=== PATIENT | female | born 1975 | race Caucasian/White ===

== ENCOUNTER 2018-12-26 14:15 | Inpatient (IN) | payer OTHER ==
--- NOTE | 2018-12-26 14:58 | EDPHY ---
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 today and notes progressive swelling and erythema to the area ever since. Limited range of motion. No fever no chills. The offending cat has up-to-date vaccinations including rabies. PCP: Worker's compensation REVIEW OF SYSTEMS: 10 systems reviewed and negative with the exception of the elements mentioned in the history of present illness PAST MEDICAL & SURGICAL HISTORY: No pertinent medical or surgical history SOCIAL HISTORY:Nonsmoker. 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 Appears to be in no acute distress. 2) HEAD: Normocephalic, atraumatic 3) HEENT: Pupils equal, round, reactive to light bilaterally. Sclera anicteric. 4) NECK: Full range of motion, no meningeal signs. 5) LUNGS: Clear auscultation bilaterally, no wheezes, no rhonchi, no retractions. 6) HEART: Regular rate and rhythm, no murmur, no heave, no gallop. 7) ABDOMEN: No guarding, no rebound, no focal tenderness, 8) MUSCULOSKELETAL: Left thumb: Puncture wound left thumb proximal phalanx with diffuse erythema, induration, tenderness to the left thumb with limited range of motion at the MCP and IP with lymphangitic streaking extending along her thenar eminence. 9) BACK: No CVA tenderness, no midline vertebral tenderness, no fluctuance, no step-off, no obvious trauma, no visual or palpable abnormality. 10) SKIN: No rash, no petechiae. 11) Psychiatric: Patient is oriented X 3, there is no agitation. DIFFERENTIAL DIAGNOSIS: In no particular order including but not limited to cat bite cellulitis, infectious tenosynovitis, osteomyelitis Smoking Status: Never smoked Constitutional: Initial Vital Signs Temperature (C) 37.2 C 12/26/18 14:17 Heart Rate 72 12/26/18 14:17 Respiratory Rate 16 12/26/18 14:17 Blood Pressure 139/87 H 12/26/18 14:17 O2 Sat (%) 99 12/26/18 14:17 O2 Delivery Mode Room Air Allergies/Adverse Reactions: No Known Allergies Allergy (Verified 12/28/15 12:30) Home Medications: Medication Instructions Recorded Effexor 12/03/15 Cefdinir [Omnicef (*)] 1 tab PO BID #20 cap 12/26/15 oxyCODONE/APAP 5/325 [Percocet 1 - 2 tab PO Q4 PRN #15 tab 12/26/15 5/325] Ciprofloxacin/Hydrocortisone 4 drops OT BID #1 vial 12/29/15 [Cipro Hc Otic Suspension] Sulfamethox/Tmp 800/160 mg 1 tab PO BID 7 Days tab 12/29/15 [Bactrim Ds] oxyCODONE/APAP 5/325 [Percocet 1 - 2 tab PO Q4 #12 tab 12/29/15 5/325 (*)] MDM/Departure - MDM ED Course/Re-evaluation: Patient has cellulitis to left thumb from a cat bite with progressive erythema limited range of motion. At this time I do not think outpatient management with oral antibiotics are appropriate and I have recommended hospital admission for IV antibiotics, hand surgery consultation. Discussed case with primary supervising physician Dr. Pyle in the ER. Discussed the case with hospitalist Dr Pavon at 3:20 p.m. who will admit patient. Consultation with Dr. Filippo Langley hand surgery 3:26 p.m. Who will come to the ER to evaluate patient. Last oral intake was 1:00 p.m. consisting of a burrito 3:[address] Langley has evaluated the patient the ER and is plannning on taking the patient to the OR later this afternoon/evening - Depart Disposition: [facility] Inpatient Acute Clinical Impression: left thumb cat bite cellulitis Condition: Fair
[2018-12-26] MEDS ORDERED: AMPICILLIN/SULBACTAM 3 GM in NS 100 ML IV ONE (15:17)
[2018-12-26] MEDS ORDERED: ONDANSETRON DISINTEGRATING 4 MG TAB PO PRN (15:44)
[2018-12-26] MEDS ORDERED: ONDANSETRON 4 MG/2 ML VIAL IVP PRN ×2 (15:44→20:38)
[2018-12-26] MEDS ORDERED: LORazepam 2 MG/ML INJ IVP PRN (15:44)
[2018-12-26] MEDS ORDERED: ACETAMINOPHEN 325 MG TAB PO PRN (15:44)
[2018-12-26] MEDS ORDERED: ALBUTEROL 3 ML DEYVIAL IH PRN ×2 (15:45→20:38)
--- NOTE | 2018-12-26 15:46 | PDGENHP ---
History and Physical - Chief Complaint cat bite - History of Present Illness 43yo F here after a cat bite. 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 The cat bit her left thumb (she is right hand dominant) around 10am this morning. 3 puncture sites. Has been getting progressively more red and swollen since then. Painful to move thumb. No fevers or chills. The cat she was working with is up to date on vaccinations including rabies. Blood cultures were drawn in the ED and IV unasyn was administered. Dr Filippo Langley of hand surgery was consulted and is planning on surgical wash out later this evening. Case discussed with ED provider Suzan Potter. History Information - Allergies/Home Medication List Allergies/Adverse Reactions: No Known Allergies Allergy (Verified 12/28/15 12:30) Home Medications: Venlafaxine Xr [Effexor Xr 75MG (*)] 150 mg PO HS 12/26/18 [Last Taken 12/25/18] I have personally reviewed and updated: family history, medical history, social history, surgical history - Past Medical History Additional medical history: depression, mild asthma, migraine headaches, neurogenic thoracic outlet syndrome on left - Surgical History Additional surgical history: 1st left rib resection for thoracic outlet (Dr Mensah), left ankle osteochondroma removal - Family History Positive for: non-pertinent - Social History Smoking Status: Never smoked Alcohol Use: Occasionally Drug Use: None Additional social history: Lives with beverley. 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 Review of Systems Review of Systems: ROS: 10pt was reviewed & negative except for what was stated in HPI & below Physical Exam Physical Exam: Temp Pulse Resp BP Pulse Ox 37.2 C 72 16 139/87 H 99 12/26/18 14:17 12/26/18 14:17 12/26/18 14:17 12/26/18 14:17 12/26/18 14:17 Constitutional: no apparent distress, appears nourished, not in pain Eyes: PERRL, anicteric sclera, EOMI Ears, Nose, Mouth, Throat: moist mucous membranes, hearing normal, ears appear normal, no oral mucosal ulcers Cardiovascular: regular rate and rhythym, no murmur, rub, or gallop, No edema Respiratory: no respiratory distress, no rales or rhonchi, clear to auscultation Gastrointestinal: normoactive bowel sounds, soft, non-tender abdomen, no palpable masses Genitourinary: no bladder fullness, no bladder tenderness Skin: erythema (blotchy erythematous macules on upper neck), other (3 puncture sites to left thumb which is swollen) Musculoskeletal: other (limited ROM in left thumb d/t swelling and pain) Neurologic: AAOx3 Psychiatric: interacting appropriately Lab Data & Imaging Review 12/26/18 15:35 12/26/18 15:35 Assessment & Plan Assessment: 43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 Plan: #Cat bite: Offending cat reportedly up to date on vaccinations including rabies. Important oral animal lizzy to consider include pasteurella, bartonella , capnocytophaga, anaerobes. - Hand x-ray and initial labs (CBC, BMP) pending - IV unasyn 3g q6h - Blood cultures drawn - Dr Filippo Langleys of hand surgery consulted, planning on wash out this evening - Pain control #Depression: Resume home effexor this evening. #Asthma: No acute exacerbation. Albuterol PRN. #H/o left sided neurogenic thoracic outlet syndrome s/p left 1st rib resection: Given that this did not affect vascular supply, it shouldn't compromise ability to heal. VTE ppx: SCDs Code: Full Diet: NPO until procedure, then regular Dispo: Admit under observation
[2018-12-26 15:56] LABS: PLATELET COUNT 154 10^3/uL (150-400)
[2018-12-26] MEDS ORDERED: LR 1,000 ML IV ONE (16:27)
[2018-12-26] MEDS ORDERED: AMPICILLIN/SULBACTAM 3 GM in NS 100 ML IV SCH (18:00)
--- NOTE | 2018-12-26 18:47 | PDANEPAE ---
ANE History of Present Illness cat bite here for I+D ANE Past Medical History - Cardiovascular History Hx Hypertension: No Hx Arrhythmias: No Hx Chest Pain: No Hx Coronary Artery / Peripheral Vascular Disease: No Hx CHF / Valvular Disease: No Hx Palpitations: No - Pulmonary History Hx Asthma/Reactive Airway Disease: Yes Hx Oxygen in Use at Home: No Hx Sleep Apnea: Yes Sleep Apnea Screening Result - Last Documented: Negative - Endocrine History Hx Diabetes: No ANE Review of Systems Review of Systems: - Exercise capacity Exercise capacity: >=4 METS ANE Patient History - Allergies Allergies/Adverse Reactions: No Known Allergies Allergy (Verified 12/28/15 12:30) - Home Medications Home Medications: Venlafaxine Xr [Effexor Xr 75MG (*)] 150 mg PO HS 12/26/18 [Last Taken 12/25/18] - NPO status NPO Status: no food or drink >8 hours NPO Since - Liquids (Date): 12/26/18 NPO Since - Liquids (Time): 14:00 NPO Since - Solids (Date): 12/26/18 NPO Since - Solids (Time): 12:00 - Anes Hx Anes Hx: no prior problems - Smoking Hx Smoking Status: Never smoked - Alcohol Use Alcohol Use: Occasionally - Family Anes Hx Family Anes Hx: none ANE Labs/Vital Signs - Labs Result Diagrams: 12/26/18 15:35 12/26/18 15:35 - Vital Signs Blood Pressure: 149/98 Heart Rate: 67 Respiratory Rate: 16 O2 Sat (%): 99 Height: 170.18 cm Weight: 68.039 kg ANE Physical Exam - Airway Neck exam: FROM Mallampati Score: Class 2 Mouth exam: normal dental/mouth exam - Pulmonary Pulmonary: no respiratory distress, clear to auscultation - Cardiovascular Cardiovascular: regular rate and rhythym, no murmur, rub, or gallop - ASA Status ASA Status: II, E ANE Anesthesia Plan Anesthesia Plan: general endotracheal anesthesia
[2018-12-26] MEDS ORDERED: MIDAZOLAM 2 MG/2 ML VIAL IVP ONE (18:48)
[2018-12-26] MEDS ORDERED: ALBUTEROL 3 ML DEYVIAL IH ONE (18:48)
[2018-12-26] MEDS ORDERED: BUPIVACAINE 0.5% 30 ML SDV ONE (18:52)
[2018-12-26] MEDS ORDERED: POLYMYXIN B SULFATE 500,000 UNIT/10 ML SYR IRR ONE (18:53)
[2018-12-26] MEDS ORDERED: BACITRACIN 50,000 UNITS/10 ML SYR IRR ONE (18:53)
[2018-12-26] MEDS ORDERED: fentaNYL 100 MCG/2 ML INJ ONE ×3 (18:54→20:37)
[2018-12-26] MEDS ORDERED: PROPOFOL 200 MG/20 ML VIAL ONE ×2 (18:54→20:30)
[2018-12-26] MEDS ORDERED: LIDOCAINE 2% 100 MG/5 ML SYR ONE (18:54)
[2018-12-26] MEDS ORDERED: ROCURONIUM 50 MG/5 ML VIAL ONE (18:55)
[2018-12-26] MEDS ORDERED: MIDAZOLAM 2 MG/2 ML VIAL ONE (19:04)
[2018-12-26] MEDS ORDERED: DEXAMETHASONE 4 MG/ML VIAL ONE (19:22)
[2018-12-26] MEDS ORDERED: ONDANSETRON 4 MG/2 ML VIAL ONE (19:22)
[2018-12-26] MEDS ORDERED: DIAZEPAM 10 MG/2 ML SYR IVP PRN (20:38)
[2018-12-26] MEDS ORDERED: HYDROCODONE/APAP 5/325 TAB PO PRN (20:38)
[2018-12-26] MEDS ORDERED: NALOXONE HCL 0.4 MG/ML INJ IVP PRN (20:38)
[2018-12-26] MEDS ORDERED: fentaNYL 100 MCG/2 ML INJ IVP PRN (20:38)
[2018-12-26] MEDS ORDERED: ACETAMINOPHEN 500 MG TAB PO PRN (20:38)
[2018-12-26] MEDS ORDERED: oxyCODONE IR 5 MG TAB PO PRN (20:38)
[2018-12-26] MEDS: HYDROmorphONE/DILAUDID 1 MG/ML INJ IVP PRN ×4 (20:40→21:31)
--- NOTE | 2018-12-26 20:40 | POSTANESTH ---
Post Anesthetic Evaluation Cardiovascular Status: Normal, Stable, Similar to Pre-Op Cond Respiratory Status: Normal, Stable, Similar to Pre-op Cond. Level of Consciousness/Mental Status: Can Participate in Eval, Alert and Oriented Pain Control: Adequate, Prn Tx Ordered Nausea/Vomiting Control: Adequate, Prn Tx Ordered Complications Possibly Related to Anesthesia: None Noted
[2018-12-26] MEDS ORDERED: HYDROmorphONE/DILAUDID 1 MG/ML INJ ONE ×2 (20:41→21:14)
[2018-12-26] MEDS ORDERED: oxyCODONE IR 5 MG TAB ONE (21:39)
--- NOTE | 2018-12-26 22:37 | SOAPPROG ---
SOAP Progress Note Assessment/Plan: Assessment: HPI: 43 year old female with multiple left thumb cat bites after injury at work earlier today (12/26/18). Currently with increasing left thumb erythema and pain. PE: LUE: 1mm puncture wound along the volar aspect of the left thumb proximal phalanx, 1mm puncture wound along the radial border of the left thumb IP joint, and 1mm puncture wound overlying the dorsal and ulnar IP joint +FDS, FDP, FPL, EPL, DI, PI +M/R/U SILT 2+ radial and ulnar pulses Assessment and Plan: 43 year old female with multiple left thumb cat bites after injury at work earlier today (12/26/18) -- currently with evidence of rapidly progressing cellulitis as well as flexor tenosynovitis and possible IP joint septic arthritis -I have discussed with the patient the risks, benefits, alternative and complications associated with both non-operative and operative (specifically, left thumb irrigation and debridement) forms of treatment and I am recommending emergent operative intervention -She fully understands the risks, benefits, alternative and complications associated with both forms of treatment and wishes to proceed with emergent operative intervention -She has signed the informed consent form for surgery and surgery will be performed as soon as the OR is available 12/26/18 16:30 Objective: Vital Signs Temp Pulse Resp BP Pulse Ox 36.8 C 89 16 167/109 H 92 12/26/18 22:22 12/26/18 22:22 12/26/18 22:22 12/26/18 22:22 12/26/18 22:22 Microbiology 12/26/18 19:30 Mycobacterial Smear (AKIL) - Final Finger - Eswab Mycobacterial Culture - Final Laboratory Results 12/26/18 15:35 12/26/18 15:35 ICD10 Worksheet Patient Problems: Problems Problem Status Onset Cellulitis of right ear canal Acute
[2018-12-26] MEDS: oxyCODONE IR 5 MG TAB PO PRN (22:38)
--- NOTE | 2018-12-26 22:38 | POSTOPPROG ---
Post Op Note Date of Operation: 12/29/18 Surgeon: Aaron Langley Teaching Artist: None Anesthesiologist: Joe Berg MD Anesthesia: GET(General Endotracheal) Pre-op Diagnosis: Left thumb cat bites -- cellulitis, flexor tenosynovitis, septic arthritis Post-op Diagnosis: Left thumb cat bites -- cellulitis, flexor tenosynovitis, septic arthritis Indication: Left thumb cat bites -- cellulitis, flexor tenosynovitis, septic arthritis Procedure: Left thumb irrigation and debridement including flexor sheath and IP joint Inf/Abcess present in the surg proc area at time of surgery?: Yes Depth: Deep Incisional (Fascial) EBL: Minimal Complications: None Specimen(s): swab culture
--- NOTE | 2018-12-26 22:41 | SOAPPROG ---
SOAP Progress Note Assessment/Plan: Assessment: HPI: 43 year old female now POD#0 from left thumb flexor sheath I&D and left thumb IP joint I&D after multiple lcat bitest work earlier today (12/26/18). PE: LUE: Dressing is CDI +FDS, FDP, FPL, EPL, DI, PI +M/R/U SILT < 2 second capillary refill Assessment and Plan: 43 year old female now POD#0 from left thumb flexor sheath I&D and left thumb IP joint I&D after multiple lcat bitest work earlier today (12/26/18). -Continue in current dressing for the next two days -A member of the hand team will change dressing in approximately 48 hours -Keep the left hand clean and dry -Admit to medicine for pain control and initiation of IV antibiotics 12/26/18 22:38 Objective: Vital Signs Temp Pulse Resp BP Pulse Ox 36.8 C 89 16 167/109 H 92 12/26/18 22:22 12/26/18 22:22 12/26/18 22:22 12/26/18 22:22 12/26/18 22:22 Microbiology 12/26/18 19:30 Mycobacterial Smear (AKIL) - Final Finger - Eswab Mycobacterial Culture - Final Laboratory Results 12/26/18 15:35 12/26/18 15:35 ICD10 Worksheet Patient Problems: Problems Problem Status Onset Cellulitis of right ear canal Acute
[2018-12-26] MEDS: VENLAFAXINE XR 75 MG CAP PO SCH (22:42)
[2018-12-26] MEDS: DOCOSANOL 2 GM CREAM TP SCH (22:48)
[2018-12-26] MEDS: AMPICILLIN/SULBACTAM 3 GM in NS 100 ML IV SCH (23:11)
[2018-12-26] MEDS: diphenhydrAMINE 25 MG CAP PO PRN (23:11)
[2018-12-27] MEDS: HYDROCODONE/APAP 5/325 TAB PO PRN ×5 (00:15→20:52)
--- NOTE | 2018-12-27 03:41 | GOP ---
[f rep st] OPERATIVE REPORT PATIENT: COREY CARRANZA DATE OF SERVICE: 12/26/18 PATIENT DATE OF : 1975 SURGEON: Aaron Langley M.D. CASH APPLICATION REPRESENTATIVE: None ANESTHESIA: General PRE-OPERATIVE DIAGNOSES: Left thumb cat bites (ICD-10 code S61.452A left hand cat bites) Left thumb felon (ICD-10 code L02.519 -- cutaneous abscess of hand) Left thumb IP joint septic arthritis (ICD-10 code M00.9 septic arthritis) Left thumb purulent flexor tenosynovitis (ICD-10 code M65.849 flexor tenosynovitis) POST-OPERATIVE DIAGNOSES: Left thumb cat bites (ICD-10 code S61.452A left hand cat bites) Left thumb felon (ICD-10 code L02.519 -- cutaneous abscess of hand) Left thumb IP joint septic arthritis (ICD-10 code M00.9 septic arthritis) Left thumb purulent flexor tenosynovitis (ICD-10 code M65.849 flexor tenosynovitis) OPERATIVE PROCEDURES: CPT code 01980 Left thumb interphalangeal joint arthrotomy with irrigation and debridement CPT code 02600 Left thumb A1 macy release CPT code 44975 Left thumb drainage of tendon sheath CPT code 37280 Left thumb felon incision and drainage CPT code 89342 Debridement of muscle and fascia, first 20 square cm or less CPT code 11009 Debridement of bone, first 20 square cm or less CPT code 33439 Left thumb laceration repair, 2.5cm or less EBL: 0.2cc COMPLICATIONS: None TOURNIQUET TIME: 62 minutes at 250 mmHg IMPLANTS: None BRIEF CLINICAL NOTE: This is a very pleasant 43 year old female who sustained multiple cat bites to her left thumb earlier today (12/26/18) when she was at work. Since the bites, she has developed rapidly progressive erythema, swelling , and pain involving her left thumb both dorsally overlying the IP joint and volarly overlying the flexor sheath. As such, I discussed the risks, benefits, alternatives, and complications associated with both non-operative (specifically , observation, antibiotics) and operative (specifically, left thumb irrigation and debridement) forms of treatment. The patient fully understood the risks, benefits, alternatives, and complications associated with both forms of treatment and wished to proceed with operative intervention as outlined above. The patient signed the informed consent form for surgery. OPERATIVE NOTE: On the day of surgery, all of the patients questions were answered. The patient was then transferred from the pre-operative area into the operating room and a formal, Time-Out procedure was performed. The patient was identified by name, medical record number, social security number, and date of . In addition, the patients left upper extremity was identified as the correct portion of the patients body for surgery with the patients left thumb being identified as the correct portion of that extremity for surgery. The brachium was padded with webril and an 18-inch tourniquet was applied. The extremity was prepped and draped in the normal sterile fashion. The extremity was elevated for several minutes and the tourniquet was inflated to 250mm Hg. Volar incision A lou-type incision was marked out overlying the left thumb distal phalanx and the left thumb A1 macy which incorporated the volar bite wound. A number 15 blade was used to incise the skin. Meticulous hemostasis was obtained the in the subcutaneous plane. Jose Roberto purulence was encountered surrounding the volar bite wound with evidence of communication with the flexor sheath. The purulent material was swab cultured. The radial and ulnar neurovascular bundles as well as the flexor tendon were identified and protected. Full thickness skin flaps were elevated and tied back in place utilizing 4-0 nylon sutures. The A1 macy was incised to provide access to the proximal flexor sheath. Small diameter propofol infusion tubing was then advanced into the proximal flexor sheath in an anterograde fashion. The entire flexor sheath was then copiously irrigated with sterile normal saline mixed with Bacitracin and polymixin. In addition the distal phalanx pulp space and the entire volar wound was sharply surgically debrided including muscle and fascia. The wound was copiously irrigated with sterile normal saline mixed with bacitracin and polymixin. Attention was then turned to the dorsal bite wounds overlying the IP joint. Dorsal IP joint incision A dorsal Y-shaped incision was marked out overlying the left thumb distal interphalangeal joint. A number 15 blade was used to incise the skin and meticulous hemostasis was obtained in the subcutaneous plane. Superficial sensory nerve branches were identified and protected. The extensor pollicis longus was identified and protected. A number 15 blade was then used to incise the dorsal IP joint capsule along the radial border of the joint line ( arthrotomy). The IP joint was then sharply surgically debrided including bone and copiously irrigated with sterile normal saline mixed with bacitracin and polymixin. All incisions were then re-approximated with 4-0 nylon sutures. The hand, fingers, and thumb were cleaned with sterile normal saline and dried. Betadine soaked gauze was applied to the incisions followed by a dry sterile dressing and a compressive Coban wrap. Once the dressing was completely in place, the tourniquet was deflated. After complete deflation of the tourniquet, all fingers and the thumb demonstrated brisk capillary refill. The patient was then reversed from anesthesia and transferred from the operating room table onto the post-operative gurney and transferred from the operating room to the post-anesthesia care unit in stable condition. POST-OPERATIVE PLAN: The patient will remain in the current dressing for the next two days. The patient will be admitted to the hospitalist team and the infectious disease team will be consulted for recommendations on long-term antibiotics. /[id number]/MODL MTDD
[2018-12-27] MEDS: HYDROmorphONE/DILAUDID 1 MG/ML INJ IVP PRN (03:43)
[2018-12-27] MEDS: oxyCODONE IR 5 MG TAB PO PRN ×2 (04:38→10:16)
--- NOTE | 2018-12-27 04:56 | GCON ---
[f rep st] CONSULTATION Patient Name: COREY CARRANZA N-Number: [id number] Date of : 1975 Patient Status: Inpatient Attending Doctor: Mitesh Pavon Consulting Doctor: Aaron Langley MD Date of service: 12/26/18 CPT codes: CPT code 24293 ER visit requiring admission or initial inpatient visit, level three Modifier 57 Decision for surgery CHIEF COMPLAINT: Left thumb multiple cat bites HISTORY OF PRESENT ILLNESS: This is a very pleasant 43 year old female who sustained multiple cat bites to her left thumb earlier today (12/26/18) at work. Following the injury, she has developed rapidly progressive swelling, erythema, and pain both dorsally overlying her IP joint and volarly overlying her flexor sheath. PROBLEM LIST: Left thumb multiple cat bites PAST MEDICAL HISTORY: Depression, asthma, migraine headaches, left-sided neurogenic thoracic outlet syndrome SURGERIES: Left-sided thoracic outlet decompression SOCIAL HISTORY: Denies tobacco, alcohol, or illicit drug use FAMILY HISTORY: Non-contributory CURRENT MEDICATIONS: Venlafaxine ALLERGIES: NKDA REVIEW OF SYSTEMS Constitutional: No unexpected weight loss, weight gain, fevers, chills, or fatigue. Eyes: No blurred or double vision, no eye pain, redness or swelling. ENT: No headaches, difficulty swallowing, nose bleeds, tinnitus, or earaches. Cardiovascular: No chest pain, palpitations, fainting or murmurs. Respiratory: No shortness of breath, wheezing, cough, of difficulty breathing. GI: No reflux, no nausea or vomiting, no constipation, diarrhea, or bloody stools. Genitourinary: No urinary frequency or urgency, no pain with urination. Skin: No skin changes, rashes, itching, or redness. Neurologic: No unsteadiness of gait, no dizziness, tremors, or seizures. Psychiatric: No nervousness, anxiety, depression, or hallucinations. Hematologic: No increased bleeding or easy bruising. Endocrine: No excessive thirst or urination and no heat or cold intolerances. Allergic: No reactions to food or environment. Musculoskeletal: See history of present illness. PHYSICAL EXAM General: No apparent distress. Orientation: Alert and oriented times three Mood and affect: Calm, appropriate. Gait and station: Normal gait and station. Skin: Erythema overlying the left thumb IP joint dorsally and overlying the volar left thumb distal and proximal phalanges Lymph: Non tender neck, axillary and inguinal nodes. Chest: Equal expansion, no pain with deep breaths, speaks in coherent sentences. Cardiovascular: Regular pulse. Abdomen: Soft, non-tender, no masses, no palpable hernias. Bilateral thumb examination Inspection/palpation: Right: Soft, no tenderness to palpation. Left: Two 1mm puncture wounds overlying the dorsal left thumb IP joint, one 1mm puncture wound overlying the volar and radial aspect of the left thumb IP joint Thumb ROM CMC Radial abduction: 80 / 50 / 80 Palmar abduction: 80 / 50 / 80 MCP: 0-60 / 0-20 / 0-60 IP: 0-50 / DINORA due to pain / 0-50 Thumb motors FPL: / 5 EPL: / Thumb sensory RDN: + / + / + UDN: + / + / + Vascular tests Radial pulse: 2+ / 2+ / 2+ Ulnar pulse: 2+ / 2+ / 2+ Medical decision making Data Imaging study: left hand radiographs Action: interpreted Interpretation / pertinent findings: no fracture Diagnoses New diagnosis: left thumb multiple cat bites with concern for septic arthritis and flexor tenosynovitis Work-up planned: yes: see assessment and plan Assessment and plan This is a 43 year old female with multiple left thumb cat bites earlier today () at work currently with concern for left thumb IP joint septic arthritis and left thumb flexor tenosynovitis -As such I have discussed with the patient the risks, benefits, alternatives, and complications associated with both non-operative (specifically, observation , antibiotics) and operative (specifically, left thumb irrigation and debridement) forms of treatment and I am recommending emergent operative intervention -The patient fully understands the risks, benefits, alternatives, and complications of both forms of treatment and the patient wishes to proceed with operative intervention as outlined above -She has signed the informed consent form for surgery and surgery will be performed as soon as the OR is available Time I have spent 80 minutes of [id number] time with the patient during this visit. Over fifty percent of this time was spent counseling the patient on the risks, benefits, alternatives, and complications of both non-operative and operative forms of treatment as outlined above. /[id number]/MODL MTDD
[2018-12-27] MEDS: AMPICILLIN/SULBACTAM 3 GM in NS 100 ML IV SCH ×3 (05:05→18:11)
[2018-12-27] MEDS: DOCOSANOL 2 GM CREAM TP SCH ×4 (05:10→18:19)
[2018-12-27] MEDS: diphenhydrAMINE 25 MG CAP PO PRN (05:18)
[2018-12-27] MEDS ORDERED: ENOXAPARIN 40 MG/0.4 ML SYR SC SCH (09:00)
--- NOTE | 2018-12-27 09:04 | HOSPPROG ---
Hospitalist Progress Note Assessment/Plan: #Cat bite: s/p wash-out, IV Unasyn -appreciate ID evaluation -pain control with Hansen and Toradol (add PPI, h/o ulcer) #Depression: Effexor #Asthma: no e/o exacerbation #Neurogenic thoracic outlet syndrome #Diet: reg #DVT ppx: ambulating #Disp: inpatient admission for IV abx, ID evaluation Subjective: pain /10. Hansen works best Objective: Vital Signs Temp Pulse Resp BP Pulse Ox 36.9 C 70 16 125/86 H 95 12/27/18 07:54 12/27/18 07:54 12/27/18 07:54 12/27/18 07:54 12/27/18 07:54 Microbiology 12/26/18 19:30 Gram Stain - Final Finger - Eswab 12/26/18 19:30 Mycobacterial Smear (AKIL) - Final Finger - Eswab Mycobacterial Culture - Final Laboratory Results 12/27/18 04:35 12/27/18 04:35 - Time Spent With Patient Time Spent with Patient: greater than 35 minutes Time Spent with Patient: Greater than 35 minutes spent on this patients care, greater than 50% of time spent counseling, educating, and coordinating care regarding the above mentioned plan. - Physical Exam Constitutional: no apparent distress Eyes: PERRL Ears, Nose, Mouth, Throat: moist mucous membranes Cardiovascular: regular rate and rhythym Respiratory: no respiratory distress Gastrointestinal: normoactive bowel sounds Genitourinary: no bladder fullness Skin: warm Musculoskeletal: other (left hand CDI) Neurologic: AAOx3, CN II-XII Intact Psychiatric: interacting appropriately ICD10 Worksheet Patient Problems: Problems Problem Status Onset Cellulitis of right ear canal Acute
--- NOTE | 2018-12-27 16:58 | ASMTCMCOM ---
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 Anticipate she will dc home with support of fiance when medically stable. CM available for any changes. DC Plan: Independent Date Signed: 12/27/2018 04:58 PM Electronically Signed By:Kaylee Duffy RN
[2018-12-27] MEDS: KETOROLAC 15 MG/1 ML SDV IVP PRN (18:04)
[2018-12-27] MEDS: PANTOPRAZOLE SODIUM 40 MG TAB PO SCH (18:10)
[2018-12-27] MEDS ORDERED: BISACODYL 10 MG SUPP PR PRN (18:18)
[2018-12-27] MEDS ORDERED: MAGNESIUM HYDROXIDE 30 ML UDCUP PO PRN (18:18)
[2018-12-27] MEDS ORDERED: POLYETHYLENE GLYCOL 3350 17 GM PKT PO PRN (18:18)
--- NOTE | 2018-12-27 18:28 | GCON ---
[f rep st] CONSULTATION INFECTIOUS DISEASE CONSULTATION REFERRING PHYSICIAN: Aaron Langley MD REASON FOR CONSULTATION: Tenosynovitis and septic IP joint left thumb following cat bite. 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 on the 26 of December. She immediately washed the area with chlorhexidine, but remained at work to assist with surgical procedures, but then presented to the emergency room later that afternoon. In the interim, patient did notice increased pain and swelling and streaking up her arm. In the emergency room, patient was found to have erythema on her left thumb and swelling with 3 puncture sites. The patient was taken to the operating room that night where purulence was identified in the tendon sheath, as well as the IP joint. Cultures were taken and are pending. The patient was started on IV Unasyn. Patient states that she does have significant postsurgical pain, but states that the erythema that was on her wrist has now resolved. Notably, patient endorses a Tdap that is up to date and the cat who bit her was fully vaccinated. PAST MEDICAL HISTORY: Asthma, depression, thoracic outlet syndrome. She also has a 1 year ago history of a severe ear infection for which she said she received 4 to 5 doses of vancomycin, but reports that she was not told that she had MRSA, just a resistant ear infection. She was stepped down to cefdinir. PAST SURGICAL HISTORY: Ankle surgery and thoracic outlet syndrome surgical management. ALLERGIES: NKDA. MEDICATIONS: None chronic. She is on Unasyn 3 g IV q.6. No anticoagulants or steroids. SOCIAL HISTORY: No tobacco. She has a dog, 2 cats. No reptiles or birds. She recently traveled to [place]. She works as a [employer]. FAMILY HISTORY: Reviewed and noncontributory. REVIEW OF SYSTEMS: A complete 10-point review of systems was performed and is negative, except as mentioned in HPI. PHYSICAL EXAM: VITAL SIGNS: Patient is afebrile throughout her hospital course. Blood pressure 130/82, heart rate 69, respiratory rate 16, saturation 95% on room air. GENERAL: This is a pleasant young woman sitting up in bed, in no acute distress. HEENT: No conjunctival injection. Oropharynx: Good dentition. Moist mucous membranes. No ulcerations or exudate. NECK: The patient had blanching of her upper chest. CARDIOVASCULAR: Regular rate with a faint systolic murmur. CHEST: Clear to auscultation bilaterally. ABDOMEN: Soft, nontender. EXTREMITIES: She had normal capillary refill. She had full movement of her 2nd through 5th digit. On her left hand, her thumb and hand were wrapped up in surgical dressing and this was not disturbed by me. She had no swelling of her forearm that was obvious. NEUROLOGIC: She is alert and oriented 4 moving all 4 extremities equally. LABORATORY/IMAGING: White count 7.7, hematocrit 41, platelets of 162. Creatinine 0.5. Beta hCG negative. Plain film of her left hand showed no foreign body or fracture. ASSESSMENT/PLAN: This is a 43-year-old woman with minimal past medical history who sustained a cat bite at work who rapidly developed tenosynovitis and possible septic interphalangeal joint of her left thumb. Immediately following the bite was taken immediately to surgery, where purulence was debrided and cultures were taken. The patient seemed to be clinically stabilized today, although difficult due to inability to fully examine her left thumb. There is at no risk for rabies and her Tdap is up to date. 1. Would cover for typical pathogens of a cat bite, including Streptococcus, Pasteurella, Capnocytophaga, and anaerobes. Less likely pathogens, include Staph aureus and patient has no known risk presence of methicillin-resistant Staphylococcus aureus. She did have 1 of her dogs had MRSE abscess. Continue Unasyn 3 g IV Q 6 while hospitalized. 2. Continue to monitor patient clinically, but did discuss the likelihood that she will need 1 to 2 weeks of IV therapy and how this could be delivered via peripheral intravenous versus peripherally inserted central catheter line. 3. Await additional culture results before making final decisions regarding specific antibiotic and duration of treatment. 4. Would add on LFTs due to ongoing beta-lactam therapy. Thank you for this consultation. We will continue to see the patient on a daily basis. Greater than 80 minutes spent on this patients care, greater than 50% of time spent counseling, educating, and coordinating care regarding the above mentioned plan. /[id number]/MODL MTDD
--- NOTE | 2018-12-27 19:07 | PDMN ---
Medical Necessity Medical necessity: MCG: Musculoskeletal disease M65.142 other infective tenosynovitis, L hand: 2 days: new Dg - Pt with cat bite immediate I/D of L thumb, I/D L thumb interphalangeal joint ID consult: tenosynovitis and septic IP joint L thumb following cat bite. status changed to INPT 12/27/18 for ongoing med nec care- further monitoring and tx of wound IV abx,
[2018-12-27] MEDS: SENNOSIDES/DOCUSATE SODIUM TAB PO SCH (20:03)
[2018-12-27] MEDS: VENLAFAXINE XR 75 MG CAP PO SCH (20:04)
[2018-12-27] MEDS: traMADol 50 MG TAB PO PRN (20:04)
[2018-12-28] MEDS: DOCOSANOL 2 GM CREAM TP SCH ×4 (00:15→15:31)
[2018-12-28] MEDS: AMPICILLIN/SULBACTAM 3 GM in NS 100 ML IV SCH ×2 (00:15→05:36)
[2018-12-28] MEDS: HYDROCODONE/APAP 5/325 TAB PO PRN ×3 (06:18→15:30)
[2018-12-28] MEDS: SENNOSIDES/DOCUSATE SODIUM TAB PO SCH (07:34)
[2018-12-28] MEDS: traMADol 50 MG TAB PO PRN (07:35)
[2018-12-28] MEDS: KETOROLAC 15 MG/1 ML SDV IVP PRN ×2 (07:35→15:30)
[2018-12-28] MEDS: PANTOPRAZOLE SODIUM 40 MG TAB PO SCH (07:35)
--- NOTE | 2018-12-28 08:01 | PDIAF ---
- Diagnosis Diagnosis: Left thumb tenosynovitis s/p cat bite Code Status: Full Code - Medication Management Scheduler Maintenance Antibiotics: ceftriaxone 2gm IV daily Scheduler Maintenance Antibiotic Stop Date: 01/10/19 Discharge Medications: electronically signed and located in the Home Medication List. PICC Care - Routine: N/A - Labs/Radiology CBC w/diff Date: 01/01/19 (weekly tuesday) CMP Date: 01/01/19 (weekly tuesday) CRP Date: 01/01/19 (weekly tuesday) - Follow Up Care Current Providers and Referrals: NONE *PRIMARY CARE P,. [Primary Care Provider] - As per Instructions Jeannie Colin MD [Medical Doctor] - 3-5 days
--- NOTE | 2018-12-28 08:11 | PCMIDPN ---
Assessment/Plan: # cat bite complicated by L thumb tenosynovitis and possible septic IP joint s/ p washout. Cx pending. Clinically stable --contacted surgeons to discuss removal of dressing to assess hand --switch to IV ceftriaxone - still suspect rapidly progressive disease would most likely be strep or pasteurella. DC Unasyn --will arrange for outpatient IV ceftriaxone via PIV and infusion center and follow cultures. --ceftriaxone 2gm IV daily 01/10 stop date Medications Unasyn 3 g IV Q 8 Micro 12/26 blood cultures (2) NGTD 12/26 OR cultures Gram stain negative: Culture pending Subjective: Patient describes postsurgical pain left thumb. Range of motion of wrist and fingers 2 through 5 are intact Objective: Vital Signs Temp Pulse Resp BP Pulse Ox 37.2 C 71 16 114/71 98 12/28/18 04:00 12/28/18 04:00 12/28/18 04:00 12/28/18 04:00 12/28/18 04:00 12/27/18 12/28/18 12/29/18 05:59 05:59 05:59 Intake Total 450 Balance 450 - Physical Exam General Appearance: alert, no apparent distress Respiratory: No accessory muscle use Extremities: other (Dressing in place left hand with normal capillary refill, minimal swelling, no visible erythema either on her fingers or forearm) Skin: No rash Neuro/Psych: alert, normal mood/affect, oriented x 3 - Time Spent With Patient Time Spent with Patient: greater than 25 minutes (Care coordinated with Hand team, hospitalist and Case Management) Time Spent with Patient: Greater than 25 minutes spent on this patients care, greater than 50% of time spent counseling, educating, and coordinating care regarding the above mentioned plan. ICD10 Worksheet Patient Problems: Problems Problem Status Onset Cellulitis of right ear canal Acute
--- NOTE | 2018-12-28 11:16 | ASMTCMCOM ---
CM Note CM Note Notes: Spoke w/, pt will come to outpt infusion for her IV abx. CM met with pt regarding IV abx, offered to send a referral if pt wanted to do it at home but pt decided outpt is fine because she works in [place]. CM scheduled appointments for outpt infusion starting tomorrow at 10:30 everyday until January 10. DC Plan: Out patient infusion Date Signed: 12/28/2018 11:16 AM Electronically Signed By:Kaylee Duffy RN
--- NOTE | 2018-12-28 11:19 | ASMTLACE ---
FRANCINE Length of stay for Answers: 1 day current admission Acuity / Level of Answers: Yes Care: Did the patient have an inpatient admission? Comorbidities - select Answers: Other Notes: Thoracic outlet syndrom e all that apply # of Emergency department Answers: 1-2 visits in the last 6 months Social determinants Answers: Mental health diagnosis (anxiety, depression, pers onality disorders, etc.) Score: 9 Date Signed: 12/28/2018 11:18 AM Electronically Signed By:Kaylee Duffy RN
[2018-12-28 11:35] VITALS: BP 122/77
[2018-12-28] MEDS ORDERED: ERTAPENEM 1 GM in NS 100 ML IV SCH (16:15)
--- NOTE | 2018-12-28 16:33 | SOAPPROG ---
SOAP Progress Note Assessment/Plan: Assessment: HPI: 43 year old female now POD#2 from left thumb flexor sheath I&D and left thumb IP joint I&D after multiple cat bites at work (12/26/18). PE: LUE: Incisions are well approximated. Dressing is CDI +FDS, FDP, FPL, EPL, DI, PI +M/R/U SILT < 2 second capillary refill Assessment and Plan: 43 year old female now POD#2 from left thumb flexor sheath I&D and left thumb IP joint I&D after multiple cat bites at work (12/26/18). -Removed operative dressing. Applied Betadine and a new DSD. Keep C/D/I -Start left thumb range of motion -Continue antibiotics per ID recommendations -Patient may discharge home today -RX for Oxycodone given to be used PRN pain. -FU on Tuesday or Tuesday at [facility] with Ashley Bernal PA-C or Elisabet Vazquez PA-C 12/28/18 16:30 Objective: Vital Signs Temp Pulse Resp BP Pulse Ox 36.7 C 59 L 16 122/77 H 97 12/28/18 11:32 12/28/18 11:32 12/28/18 11:32 12/28/18 11:32 12/28/18 11:32 12/27/18 12/28/18 12/29/18 05:59 05:59 05:59 Intake Total 450 750 Balance 450 750 ICD10 Worksheet Patient Problems: Problems Problem Status Onset Cellulitis of right ear canal Acute
--- NOTE | 2018-12-28 16:35 | PDDCSUM ---
Discharge Summary Discharge Summary: Discharge diagnosis Cat bite Tenosynovitis Asthma Depression Neurogenic thoracic outlet syndrome The patient presents to the emergency room after getting bit by a cat on her left thumb. She had rapid swelling and increased pain of her hand. Plain film of her hand was obtained which showed soft tissue swelling but no acute fracture or foreign body. Orthopedic surgery was consulted and the patient was started on Unasyn. The patient was taken to the operating room for incision and drainage. Infectious Disease was consulted and the patient was transitioned over to Rocephin. However the culture grew out an anaerobic Gram- negative junito and so she was transitioned over to ertapenem. She was discharged home to complete intravenous antibiotic therapy with ertapenem through January 08 along with follow-up with Infectious Disease and Orthopedic surgery. Disposition Home independent New medications Ertapenem Follow-up Infectious Disease Kasia Langley I spent over 30 min on the discharge of this patient
--- NOTE | 2019-01-02 06:55 | PQFORM ---
PHYSICIAN QUERY FORM Needs Your Response This query form is being sent to you to assure this patient record is coded properly. Please respond to the question below: ACCOUNT SERVICES SPECIALIST QUESTION: Dear Dr. Langley, In your operative note you state that you sharply surgically debrided the entire volar wound including muscle and fascia. Can this statement be further defined as?: Excisional debridement Nonexcisional debridement Other Thank you for clarifying, SEGUN Philip HIM Coding INSTRUCTIONS FOR RESPONSE: Answer question by clicking on the "Edit Document" button. Move cursor to area below the stars. When complete, hit "Save." Click on the "Sign" button, then click "Sign" again. Type in your PIN and hit "Enter." MTDD
--- NOTE | 2019-01-02 06:58 | PQFORM ---
PHYSICIAN QUERY FORM Needs Your Response This query form is being sent to you to assure this patient record is coded properly. Please respond to the question below: TELECOMMUNICATIONS ENGINEER QUESTION: Dear Dr. Langley, In your operative report you state the bone was sharply surgically debrided. Can the statement be further defined as?: Excisional debridement Non-excisional debridement Other Thank you for clarifying, SEGUN Philip HIM Coding INSTRUCTIONS FOR RESPONSE: Answer question by clicking on the "Edit Document" button. Move cursor to area below the stars. When complete, hit "Save." Click on the "Sign" button, then click "Sign" again. Type in your PIN and hit "Enter." MTDD
== END 2018-12-28 18:01 | disposition home health service (06) | DRG 506 ==
LOC: F3E 16:00 → OBSVTOIN 12-27 14:31
PROVIDERS: ADMIT Internal Medicine; ATTEND Internal Medicine
PROC: 0R9X0ZZ Drainage of Left Finger Phalangeal Joint, Open Approach (ICD-10-PCS; principal; 2018-12-26 17:00)
PROC: 0J9K0ZZ Drainage of Left Hand Subcutaneous Tissue and Fascia, Open Approach (ICD-10-PCS; principal; 2018-12-26 17:00)
PROC: 0L980ZZ Drainage of Left Hand Tendon, Open Approach (ICD-10-PCS; principal; 2018-12-26 17:00)
PROC: 0KBD0ZZ Excision of Left Hand Muscle, Open Approach (ICD-10-PCS; principal; 2018-12-26 17:00)
PROC: 0PBS0ZZ Excision of Left Thumb Phalanx, Open Approach (ICD-10-PCS; principal; 2018-12-26 17:00)
DX: M65.142 Other infective (teno)synovitis, left hand (principal); S61.052A Open bite of left thumb without damage to nail, initial encounter; L03.012 Cellulitis of left finger; M00.9 Pyogenic arthritis, unspecified; J45.909 Unspecified asthma, uncomplicated; F32.9 Major depressive disorder, single episode, unspecified; G54.0 Brachial plexus disorders
CPT/HCPCS: G0378; J0295; J0696; J1100; J1170; J1200; J1335; J1885; J2001; J2060; J2250; J2405; J2704; J3010; J7613